=== PATIENT | male | born 1955 | race Caucasian/White ===

== ENCOUNTER → 2018-02-12 17:13 | Outpatient (CLI) | payer BC ==
[2013-11-13 08:55] VITALS: BMI 31.3
[~2018-02-12 17:13] MED LIST: BYSTOLIC5 MG PO; EFFIENT10 MG PO; GAVISCON PO; RANITIDINE PO
[2018-02-12 18:18] LABS: CHOL - HDL RATIO 4.3 ratio (2.3-4.9); LDL-HDL RATIO 2.8 ratio (1.5-3.5)
== END | disposition home or self-care (01) ==
LOC: D.LABREF 17:13
PROVIDERS: Internal Medicine Interventional Cardiology
DX: I25.10 Atherosclerotic heart disease of native coronary artery without angina pectoris (principal)

== ENCOUNTER → 2019-02-06 08:39 | Outpatient (CLI) | payer MEDICARE, BC ==
[2013-11-13 08:55] VITALS: BMI 31.3
== END | disposition home or self-care (01) ==
LOC: D.CT 08:39
PROVIDERS: ATTEND Internal Medicine Gastroenterology
DX: R59.0 Localized enlarged lymph nodes (principal)

== ENCOUNTER → 2019-04-14 12:20 | Outpatient (CLI) | payer MEDICARE, BC ==
[2013-11-13 08:55] VITALS: BMI 31.3
== END | disposition home or self-care (01) ==
LOC: D.CT 12:20
PROVIDERS: ATTEND Family Medicine
DX: R91.1 Solitary pulmonary nodule (principal)

== ENCOUNTER → 2019-08-07 07:23 | Outpatient (CLI) | payer MEDICARE, BC ==
[2013-11-13 08:55] VITALS: BMI 31.3
[2019-08-07 08:23] LABS: ALBUMIN 3.5 g/dL (3.4-5.0); BILIRUBIN - DIRECT 0.09 mg/dL (0.00-0.30); BILIRUBIN - INDIRECT 0.28 mg/dL (0.00-1.00); BILIRUBIN - TOTAL 0.37 mg/dL (0.2-1.3); PROTEIN - SERUM 6.4 g/dL (6.4-8.2)
== END | disposition home or self-care (01) ==
LOC: D.LAB 07:23 → D.US 08:00
PROVIDERS: ATTEND Internal Medicine Gastroenterology
DX: K76.0 Fatty (change of) liver, not elsewhere classified (principal)